=== PATIENT | female | born 1970 | race African-American/Black ===

== ENCOUNTER 2020-09-14 10:20 | Emergency (ER) | payer OTHER ==
[2020-09-14 11:22] LABS: BASOPHILS % (AUTO) 0.2 % (0.0-5.0); EOSINOPHILS % (AUTO) 0.9 % (0.0-8.0); HEMATOCRIT 37.6 % (36-48); LYMPHOCYTES % (AUTO) 35.8 % (21.0-51.0); MEAN CORPUSCULAR HEMOGLOBIN 32.9 pg (27.0-33.0); MEAN CORPUSCULAR HGB CONC 34.3 g/dL (32.0-36.0); MEAN CORPUSCULAR VOLUME 95.9 fL (79-99); MONOCYTES % (AUTO) 10.6 % (3.0-13.0); NEUTROPHILS % (AUTO) 52.3 % (40.0-77.0); PLATELET COUNT (AUTO) 329 K/uL (130-400); RED BLOOD CELL COUNT(AUTO) 3.92 MIL/uL (4.00-5.50); RED CELL DISTRIBUTION WIDTH 13.1 % (11.0-15.5); WHITE BLOOD COUNT (AUTO) 5.5 K/uL (4.8-10.8)
[2020-09-14 11:43] LABS: BILIRUBIN,TOTAL 0.3 mg/dL (0.2-1.0); CREATININE 0.8 mg/dL (0.5-1.5); POTASSIUM 4.3 mmol/L (3.5-5.1); TOTAL PROTEIN, SERUM 8.4 g/dL (6.0-8.3)
[2020-09-14] MEDS ORDERED: LEVETIRACETAM 500 MG TABLET PO ONE (12:02)
== END 2020-09-14 14:58 | disposition home or self-care (01) ==
LOC: EDH 10:20
DX: G40.909 Epilepsy, unspecified, not intractable, without status epilepticus (principal); S90.121A Contusion of right lesser toe(s) without damage to nail, initial encounter; S90.02XA Contusion of left ankle, initial encounter; R07.89 Other chest pain; Z88.6 Allergy status to analgesic agent; Z90.710 Acquired absence of both cervix and uterus; Z88.8 Allergy status to other drugs, medicaments and biological substances; W18.39XA Other fall on same level, initial encounter; Y93.89 Activity, other specified; Y92.098 Other place in other non-institutional residence as the place of occurrence of the external cause; Y99.8 Other external cause status
CPT/HCPCS: 36415; 70450; 73600; 73620; 80053; 84484; 85025; 93005

== ENCOUNTER 2023-08-31 00:14 | Emergency (ER) | payer OTHER ==
[~2023-08-31] VITALS: Ht 157.5 cm; Wt 59.0 kg
[2023-08-31] MEDS: KETOROLAC 30MG VIAL (30MG/ML) IVP ONE (01:11)
[2023-08-31] MEDS: DEXAMETHASONE SOD PHOSPHATE 4 MG/ML 1ML VIAL IVP ONE (01:11)
[2023-08-31] MEDS: METOCLOPRAMIDE 10 MG/2 ML VIAL IVP ONE (01:11)
[2023-08-31] MEDS: DiphenhydrAMINE HCL 50 MG/ML VIAL IV ONE (01:11)
[2023-08-31 01:13] LABS: BASOPHILS # (AUTO) 0.03 K/uL (0.00-0.20); BASOPHILS % (AUTO) 0.5 % (0.0-5.0); EOSINOPHILS # (AUTO) 0.28 K/uL (0.00-0.70); EOSINOPHILS % (AUTO) 4.4 % (0.0-8.0); HEMATOCRIT 33.9 % (36-48); IMMATURE GRANULOCYTE ABSOLUTE 0.01 K/uL (0-1); LYMPHOCYTES % (AUTO) 62.9 % (21.0-51.0); MEAN CORPUSCULAR HEMOGLOBIN 32.7 pg (27.0-33.0); MEAN CORPUSCULAR HGB CONC 35.4 g/dL (32.0-36.0); MEAN CORPUSCULAR VOLUME 92.4 fL (79-99); MONOCYTES # (AUTO) 0.5 K/uL (0.1-1.0); MONOCYTES % (AUTO) 8.2 % (3.0-13.0); NEUTROPHILS # (AUTO) 1.5 K/uL (1.8-7.7); NEUTROPHILS % (AUTO) 23.8 % (40.0-77.0); PLATELET COUNT (AUTO) 347 K/uL (130-400); RED BLOOD CELL COUNT(AUTO) 3.67 MIL/uL (4.00-5.50); RED CELL DISTRIBUTION WIDTH 13.2 % (11.0-15.5); WHITE BLOOD COUNT (AUTO) 6.3 K/uL (4.8-10.8)
[2023-08-31 01:22] LABS: CREATININE 0.8 mg/dL (0.5-1.0); POTASSIUM 3.3 mmol/L (3.5-5.1)
[2023-08-31 01:23] VITALS: BP 177/80; PULSE 63; RESP 18; O2SAT 98
[2023-08-31 01:27] LABS: ALBUMIN 3.5 g/dL (3.5-5.0); BILIRUBIN,TOTAL 0.2 mg/dL (0.2-1.0); TOTAL PROTEIN, SERUM 7.4 g/dL (6.0-8.3)
== END 2023-08-31 02:00 | disposition home or self-care (01) ==
LOC: EDH 00:14
DX: G43.909 Migraine, unspecified, not intractable, without status migrainosus (principal); R07.89 Other chest pain; I10 Essential (primary) hypertension
CPT/HCPCS: 99285; 96374; 96375; 71045; 84484; 80053; 85025; 36415; 93005; J1100; J1200; J1885; J2765